=== PATIENT | male | born 1965 | race Caucasian/White ===

== ENCOUNTER 2016-12-26 18:31 | Emergency (ER) | payer OTHER ==
[~2016-12-26] VITALS: Ht 180.3 cm; Wt 121.6 kg
[2016-12-26] MEDS ORDERED: DEXAMETHASONE 4 MG TABLET PO ONE (19:09)
[2016-12-26] MEDS ORDERED: DEXAMETHASONE 4 MG TABLET ONE (20:02)
[2016-12-26 20:13] VITALS: BP 138/81
== END 2016-12-26 20:16 | disposition home or self-care (01) ==
LOC: ED 20:10
DX: J06.9 Acute upper respiratory infection, unspecified (principal); Z87.891 Personal history of nicotine dependence
CPT/HCPCS: 71020; 99284

== ENCOUNTER 2017-08-24 23:17 | Emergency (ER) | payer OTHER ==
[~2017-08-24] VITALS: Ht 193 cm; Wt 115.0 kg
[2017-08-24] MEDS ORDERED: ONDANSETRON 2MG/ML, 2ML IVPush ONE (23:30)
[2017-08-24] MEDS ORDERED: SODIUM CHLORIDE 0.9% 1,000ML IVBOLUS ONE (23:30)
[2017-08-24] MEDS ORDERED: ONDANSETRON 2MG/ML, 2ML ONE (23:56)
[2017-08-24] MEDS ORDERED: MORPHINE SULFATE 4 MG/ML, 1ML ONE (23:56)
[2017-08-25] MEDS: MORPHINE SULFATE 4 MG/ML, 1ML IVPush PRN ×2 (00:21→01:37)
[2017-08-25 00:27] LABS: BASOPHILS # (AUTO) 0.06 x10^3/uL (0-0.1); BASOPHILS % (AUTO) 1 % (0-1); EOSINOPHILS % (AUTO) 4 % (1-7); LYMPHOCYTES # (AUTO) 2.64 x10^3/uL (1-3.4); LYMPHOCYTES % (AUTO) 36 % (22-44); MD NO; MEAN CORPUSCULAR HGB CONC 34.5 g/dL (33.2-36.2); MEAN CORPUSCULAR VOLUME 89.7 fL (81-97); MONOCYTES # (AUTO) 0.64 x10^3/uL (0.2-0.8); MONOCYTES % (AUTO) 9 % (2-9); NEUTROPHILS # (AUTO) 3.79 x10^3/uL (1.8-6.8); NEUTROPHILS % (AUTO) 51 % (42-75); PLATELET COUNT 222 x10^3/uL (130-400); RED CELL DISTRIBUTION WIDTH 12.3 % (9.4-14.8)
[2017-08-25 00:40] LABS: ALANINE AMINOTRANSFERASE 47 U/L (12-78); ALBUMIN 3.8 g/dL (3.4-5.0); ANION GAP 6 mmol/L (5-15); CALCIUM 8.6 mg/dL (8.5-10.1); CHLORIDE 107 mmol/L (98-107); CREATININE 0.75 mg/dL (0.7-1.3)
[2017-08-25 00:45] LABS: ALKALINE PHOSPHATASE 92 U/L (45-117); BILIRUBIN,TOTAL 0.5 mg/dL (0.2-1.0); TOTAL PROTEIN 7.3 g/dL (6.4-8.2); TROPONIN I < 0.015 ng/mL (0.000-0.045)
[2017-08-25] MEDS ORDERED: MORPHINE SULFATE 4 MG/ML, 1ML ONE (01:20)
[2017-08-25 01:35] LABS: MICROSCOPIC NOT IND
[2017-08-25 01:41] LABS: CULTURE INDICATED? NO
[2017-08-25 02:23] VITALS: BP 99/63
== END 2017-08-25 02:25 | disposition home or self-care (01) ==
LOC: ED 23:59
DX: R10.11 Right upper quadrant pain (principal)
CPT/HCPCS: 36415; 74176; 76700; 80053; 80307; 81003; 83690; 84484; 85025; 96361; 96374; 96375; 99285; J2405; J7030; G0479

== ENCOUNTER 2018-04-27 03:02 | Emergency (ER) | payer OTHER ==
[~2018-04-27] VITALS: Ht 180.3 cm; Wt 128.1 kg
[2018-04-27 03:05] VITALS: BP 149/93
== END 2018-04-27 03:56 | disposition home or self-care (01) ==
LOC: ED 03:30
DX: M26.622 Arthralgia of left temporomandibular joint (principal); R51 Headache
CPT/HCPCS: 99283